=== PATIENT | male | born 1995 | race Caucasian/White ===

== ENCOUNTER 2018-10-05 12:03 | Emergency (ER) | payer SELFPAY ==
[~2018-10-05] VITALS: Ht 182.8 cm; Wt 54.4 kg
[~2018-10-05 12:03] MED LIST: AMOXICILLIN500 MG PO; BACTRIM DS 8001 TA1 PO; CLARITIN10 MG PO; MOTRIN400 MG PO; NKHM; PRELONE5 MG/5 ML PO; PROVENTIL0.09 MG/AC IH; ZITHROMAX Z PA250 MG PO
[2018-10-05 15:20] VITALS: BP 113/63
[2018-10-05] MEDS ORDERED: ROBAXIN500 M1 PO (15:29)
[2018-10-05] MEDS ORDERED: NAPROSYN500 MG PO (15:29)
== END 2018-10-05 15:36 | disposition home or self-care (01) ==
LOC: ED 12:03
DX: S39.012A Strain of muscle, fascia and tendon of lower back, initial encounter (principal); S29.012A Strain of muscle and tendon of back wall of thorax, initial encounter; V43.42XA Person boarding or alighting a car injured in collision with other type car, initial encounter; Y93.I9 Activity, other involving external motion; Y92.488 Other paved roadways as the place of occurrence of the external cause; Y99.8 Other external cause status

== ENCOUNTER 2019-08-25 22:18 | Emergency (ER) | payer SELFPAY ==
[~2019-08-25] VITALS: Ht 182.8 cm; Wt 65.8 kg
[~2019-08-25 22:18] MED LIST changes: +NAPROSYN500 MG PO; +ROBAXIN500 M1 PO
[2019-08-25] MEDS ORDERED: ANTIBIOTIC28.4 GM T (22:45)
[2019-08-25] MEDS ORDERED: CEPHALEXIN500 M1 PO (22:45)
== END 2019-08-25 23:30 | disposition home or self-care (01) ==
LOC: ED 22:18
DX: S61.215A Laceration without foreign body of left ring finger without damage to nail, initial encounter (principal); S61.213A Laceration without foreign body of left middle finger without damage to nail, initial encounter; W45.8XXA Other foreign body or object entering through skin, initial encounter; Y93.89 Activity, other specified; Y92.89 Other specified places as the place of occurrence of the external cause; Y99.8 Other external cause status

== ENCOUNTER 2019-12-02 01:12 | Emergency (ER) | payer SELFPAY ==
[~2019-12-02] VITALS: Ht 185.4 cm; Wt 65.8 kg
[~2019-12-02 01:12] MED LIST changes: +ANTIBIOTIC28.4 GM T; +CEPHALEXIN500 M1 PO
[2019-12-02 01:19] VITALS: BP 141/90
[2019-12-02] MEDS ORDERED: AUGMENTIN 875-875 MG PO (01:34)
== END 2019-12-02 02:33 | disposition home or self-care (01) ==
LOC: ED 01:12
DX: K02.9 Dental caries, unspecified (principal); K03.81 Cracked tooth; Z79.2 Long term (current) use of antibiotics